=== PATIENT | male | born 1965 | race Caucasian/White ===

== ENCOUNTER 2018-10-16 18:51 | Outpatient (CLI) ==
[2018-10-16 19:22] VITALS: BMI 22.4
== END 2018-10-16 19:07 | disposition critical access hospital (66) ==
LOC: AMBL 18:51
PROVIDERS: ATTEND Internal Medicine
DX: R25.2 Cramp and spasm (principal); R11.2 Nausea with vomiting, unspecified; R53.1 Weakness; R61 Generalized hyperhidrosis; T67.9XXA Effect of heat and light, unspecified, initial encounter

== ENCOUNTER 2018-10-16 19:13 | Emergency (ER) ==
[2018-10-16 19:22] VITALS: BMI 22.4
--- NOTE | 2018-10-16 19:35 | ED.PDOC ---
General ED Provider: Dr. ANAHI SOSA MD Chief Complaint: Nausea/Vomiting Stated Complaint: vomiting Time Seen by Physician: 19:30 Mode of Arrival: Walk-In Information Source: Patient Exam Limitations: No limitations Nursing and Triage Documentation Reviewed and Agree: Yes Does patient meet sepsis criteria?: No If yes, has appropriate treatment been initiated?: Yes System Inflammatory Response Syndrome: Not Applicable Sepsis Protocol: For patient's 13 years and over: Temp is 96.8 and below OR 101 and greater Pulse >90 BPM Resp >20/minute Acutely Altered Mental Status Are patient's symptoms suggestive of a new infection, such as: -Pneumonia -Skin, Soft Tissue -Endocarditis -UTI -Bone, Joint Infection -Implantable Device -Acute Abdominal Infection -Wound Infection -Meningitis -Blood Stream Catheter Infection -Unknown Review of Systems - Review Of Systems Constitutional: Reports: Weakness Eyes: Reports: No symptoms Ears, Nose, Mouth, Throat: Reports: No symptoms Respiratory: Reports: No symptoms Cardiac: Reports: No symptoms GI: Reports: Vomiting : Reports: No symptoms Musculoskeletal: Reports: Other (cramps) Skin: Reports: No symptoms Neurological: Reports: No symptoms Endocrine: Reports: No symptoms Hematologic/Lymphatic: Reports: No symptoms All Other Systems: Reviewed and Negative Past Medical History - Past Medical History Previously Healthy: Yes Endocrine: Reports: None Cardiovascular: Reports: None Respiratory: Reports: None Hematological: Reports: None Gastrointestinal: Reports: PUD (08-30-86 acute gasroenteritis esophageal reflux GIB, neg proctoscopy,), GI Bleed (bleed ing ulcers many years ago- saw Dr Snell no PMD now) Genitourinary: Reports: None Neuro/Psych: Reports: None Musculoskeletal: Reports: None Cancer: Reports: None - Surgical History General Surgical History: Reports: None - Family History Family History: Reports: Unknown - Social History Smoking Status: Former smoker Hx Substance Use: No Alcohol Screening: Occasionally - Immunizations Tetanus Shot up to Date: No (unknown) Physical Exam - Physical Exam Appearance: Thin Ill-appearing: Mild Pain Distress: None Eyes: ROBY, EOMI, Conjunctiva clear ENT: Ears normal, Nose normal, Oropharynx normal Respiratory: Airway patent, Breath sounds clear, Breath sounds equal, Respirations nonlabored Cardiovascular: RRR, Pulses normal, No rub, No murmur GI/: Soft, Nontender, No masses, Bowel sounds normal, No Organomegaly Musculoskeletal: Normal strength, ROM intact, No edema, No calf tenderness Skin: Warm, Dry, Normal color Neurological: Sensation intact, Motor intact, Reflexes intact, Cranial nerves intact, Alert, Oriented Psychiatric: Affect appropriate, Mood appropriate Critical Care Note - Critical Care Note Total Time (mins): 0 Course - Course Hematology/Chemistry: 10/16/18 20:10 10/16/18 22:05 Orders, Labs, Meds: Lab Review 10/16/18 10/16/18 10/16/18 20:10 20:10 22:05 WBC 15.02 H RBC 5.62 Hgb 16.1 Hct 46.1 MCV 82.0 MCH 28.6 MCHC 34.9 RDW Coeff of Nela 12.5 Plt Count 384 Immature Gran % (Auto) 0.7 Neut % (Auto) 86.3 Lymph % (Auto) 4.5 L Fannin % (Auto) 8.4 Eos % (Auto) 0.0 Baso % (Auto) 0.1 Immature Gran # (Auto) 0.1 Neut # (Auto) 13.0 H Lymph # (Auto) 0.7 Fannin # (Auto) 1.3 Eos # (Auto) 0.0 Baso # (Auto) 0.0 Sodium 134.6 134.5 Potassium 3.48 L 3.51 Chloride 96.2 L 99.5 Carbon Dioxide 14.4 L 16.5 L Anion Gap 27.48 22.01 BUN 44.2 H 44.5 H Creatinine 4.84 H* 4.12 H* D Estimated GFR (MDRD) 13.00 15.00 BUN/Creatinine Ratio 9.13 10.80 Glucose 183.3 H 135.1 H Calcium 9.80 9.15 Total Bilirubin 0.77 AST 40.6 ALT 19.8 Alkaline Phosphatase 95.8 Total Protein 9.53 H Albumin 5.50 H Globulin 4.03 Albumin/Globulin Ratio 1.36 Orders Category Date Time Status BMP [BASIC METABOLIC PANEL] Stat LAB 10/16/18 22:05 Completed CBC W/ AUTO DIFF Stat LAB 10/16/18 20:10 Completed CMP [COMPREHENSIVE METABOLIC PANEL] Stat LAB 10/16/18 20:10 Completed Ringers Lactated Solution [Lactated Ringers] 1,000 ml MEDS 10/16/18 21:06 Discontinued IV BOLUS Ringers Lactated Solution [Lactated Ringers] 1,000 ml MEDS 05/26/19 22:52 Discontinued IV BOLUS Medications Discontinued Medications Generic Name Dose Route Start Last Admin Trade Name Starla PRN Reason Stop Dose Admin Lactated Ringer's 1,000 mls @ 500 mls/hr 10/16/18 21:06 10/16/18 21:09 Lactated Ringers IV 10/16/18 23:05 500 mls/hr BOLUS STA Administration Lactated Ringer's 1,000 mls @ 1,000 mls/hr 10/16/18 22:52 10/16/18 23:01 Lactated Ringers IV 10/16/18 23:51 1,000 mls/hr BOLUS STA Administration Vital Signs: Temp Pulse Resp BP Pulse Ox 10/16/18 19:14 97.7 F 106 H 20 133/105 H 98 Departure - Departure Time of Disposition: 00:30 Disposition: TRANSFER SNF Discharge Problem: Dehydration after exertion Renal failure, acute Qualifiers: Acute renal failure type: unspecified Qualified Code(s): N17.9 - Acute kidney failure, unspecified Condition: Good Pt referred to PMD for follow-up: Yes IPMP verified?: No Allergies/Adverse Reactions: Allergies No Known Allergies Allergy (Verified 10/16/18 19:22) Home Medications: Ambulatory Orders 1 [No Reported Medications] 01/26/17 Transfer Form Completed: Yes Disposition Discussed With: Patient
[2018-10-16] MEDS ORDERED: LACTATED RINGERS 1,000 ML IV STA ×2 (21:06→22:52)
[2018-10-17 01:01] VITALS: BP 110/70; TEMP 97.9
== END 2018-10-17 02:17 | disposition short-term general hospital (02) ==
LOC: ED 19:13
DX: N17.9 Acute kidney failure, unspecified (principal); E86.0 Dehydration; R11.2 Nausea with vomiting, unspecified
CPT/HCPCS: 36415; 80048; 80053; 85025; 96360; 96361; 99285

== ENCOUNTER 2018-10-17 02:21 | Outpatient (CLI) ==
[2018-10-16 19:22] VITALS: BMI 22.4
== END 2018-10-17 02:44 | disposition short-term general hospital (02) ==
LOC: AMBL 02:21
PROVIDERS: ATTEND Family Medicine
DX: N28.9 Disorder of kidney and ureter, unspecified (principal); E86.0 Dehydration; T67.9XXA Effect of heat and light, unspecified, initial encounter